=== PATIENT | male | born 1940 | race Caucasian/White ===

== ENCOUNTER 2024-04-28 05:47 | Emergency (ER) | payer MEDICARE, BC ==
[~2024-04-28] VITALS: Ht 172.7 cm; Wt 91.7 kg
[2024-04-28] MEDS ORDERED: CLOP75TA15 PO (06:09)
[2024-04-28] MEDS ORDERED: LOSA50TA39 PO (06:09)
[2024-04-28] MEDS ORDERED: ESCI5TAB PO (06:09)
[2024-04-28] MEDS ORDERED: ESOM20CA PO (06:09)
[2024-04-28] MEDS ORDERED: ASPI81TA31 PO (06:09)
[2024-04-28] MEDS ORDERED: METF-440 PO (06:09)
[2024-04-28] MEDS ORDERED: METO-357 PO (06:09)
[2024-04-28 06:31] LABS: BASOPHILS # (AUTO) 0.1 K/UL (0.0-0.2); BASOPHILS % (AUTO) 1.3 % (0.0-2.0); EOSINOPHILS % (AUTO) 15.1 % (0.0-7.0); HEMOGLOBIN 9.2 g/dL (12.5-16.3); LYMPHOCYTES # (AUTO) 0.6 K/uL (0.8-4.8); LYMPHOCYTES % (AUTO) 9.5 % (20.5-51.5); MEAN CORPUSCULAR HEMOGLOBIN 28.4 uug (23.8-33.4); MEAN CORPUSCULAR HGB CONC 33 g/dL (32.5-36.3); MEAN CORPUSCULAR VOLUME 86.5 fL (73.0-96.2); MONOCYTES # (AUTO) 0.8 K/uL (0.1-1.30); MONOCYTES % (AUTO) 11.8 % (0.0-11.0); NEUTROPHILS % (AUTO) 62.3 % (38.5-71.5); PLATELET COUNT (AUTO) 270 K/uL (152-348); RED BLOOD CELL COUNT(AUTO) 3.24 MIL/uL (4.06-5.63); RED CELL DISTRIBUTION WIDTH 15.3 % (12.1-16.2); WHITE BLOOD COUNT (AUTO) 6.5 K/uL (3.6-10.2)
[2024-04-28 06:39] LABS: DIFFERENTIAL COMMENT 1
[2024-04-28 06:42] LABS: CALCIUM 8.7 mg/dL (8.5-10.1); CARBON DIOXIDE 24 mmol/L (21-32); CHLORIDE 107 mmol/L (98-107); GLUCOSE 210 mg/dL (74-106); POTASSIUM 4.4 mmol/L (3.5-5.1); SODIUM SERUM 142 mmol/L (136-145); UREA NITROGEN, BLOOD 14 mg/dL (7-18)
[2024-04-28 06:54] LABS: ALANINE AMINOTRANSFERASE 11 U/L (16-63); ALBUMIN 2.5 g/dL (3.4-5.0); ALKALINE PHOSPHATASE 93 U/L (50-136); ASPARTATE AMINOTRANSFERASE 13 U/L (15-37); BILIRUBIN,TOTAL 0.4 mg/dL (0.2-1.0); NT-PRO BNP 1061 pg/mL (0-125); TOTAL PROTEIN, SERUM 6.8 g/dL (6.4-8.2)
[2024-04-28] MEDS ORDERED: OXYMETAZOLINE NASAL 0.05% 15 ML SPRAY NS ONE (07:19)
[2024-04-28] MEDS ORDERED: HYDROCODONE/APAP 5-325MG TABLET ONE (09:39)
[2024-04-28] MEDS ORDERED: ALPRAZOLAM 0.25 MG TABLET ONE (09:41)
[2024-04-28] MEDS: ALPRAZOLAM 0.25 MG TABLET PO ONE (09:45)
[2024-04-28] MEDS: HYDROCODONE/APAP 5-325MG TABLET PO ONE (09:45)
[2024-04-28] MEDS: OXYMETAZOLINE NASAL 0.05% 15 ML SPRAY NS ONE (10:03)
[2024-04-28] MEDS: LIDOCAINE 1%-EPI 1:100,000 20 ML VIAL IJ ONE (10:03)
[2024-04-28] MEDS ORDERED: ASCORBIC ACID 500 MG TABLET ONE (10:16)
[2024-04-28] MEDS: ASCORBIC ACID 500 MG TABLET PO ONE (10:17)
[2024-04-28 11:22] VITALS: BP 108/64; TEMP 97.8; O2SAT 96
== END 2024-04-28 11:24 | disposition home or self-care (01) ==
LOC: ER 05:47
DX: R04.0 Epistaxis (principal); R06.02 Shortness of breath; R53.1 Weakness; R55 Syncope and collapse; R94.31 Abnormal electrocardiogram [ECG] [EKG]; E11.9 Type 2 diabetes mellitus without complications; F32.A Depression, unspecified; Z79.02 Long term (current) use of antithrombotics/antiplatelets; Z79.82 Long term (current) use of aspirin; Z79.84 Long term (current) use of oral hypoglycemic drugs; Z79.899 Other long term (current) drug therapy
CPT/HCPCS: 30901; 36415; 71045; 84484; 85025; 85730; A4606; A4663